=== PATIENT | male | born 1965 ===

== ENCOUNTER 2018-02-18 09:49 | Day surgery (SDC) | payer BC ==
[2018-02-18 10:24] VITALS: BMI 26.2
[2018-02-18 10:37] VITALS: O2SAT 100
[2018-02-18] MEDS ORDERED: Lactated Ringer's 1,000 ML IV ONE (13:16)
[2018-02-18] MEDS ORDERED: Propofol 10 mg/ml Inj (20 ML) ONE (13:18)
[2018-02-18 13:47] VITALS: TEMP 98
[2018-02-18 14:34] VITALS: BP 101/56; PULSE 65; RESP 16
== END 2018-02-18 14:36 | disposition home or self-care (01) ==
LOC: C.ENDO 09:49
PROVIDERS: ATTEND Internal Medicine Gastroenterology
DX: Z12.11 Encounter for screening for malignant neoplasm of colon (principal); K64.1 Second degree hemorrhoids; E55.9 Vitamin D deficiency, unspecified
CPT/HCPCS: G0121; J2001; J2704; J7120